=== PATIENT | female | born 1980 | race Caucasian/White ===

== ENCOUNTER 2020-11-04 07:04 | Day surgery (SDC) | payer BC ==
[~2020-11-04 07:04] MED LIST: Lactated Ringers 1,000 ML IV SCH; Sodium Chloride 0.9% 10 ML Syringe FLUSH PRN
[2020-11-04] MEDS ORDERED: Propofol 200 MG/20 ML SDV IV ONE (07:05)
[2020-11-04] MEDS ORDERED: Lidocaine 1% PF 2 ML SDV INJECT ONE (07:05)
--- NOTE | 2020-11-04 08:11 | PCM.PN ---
- General Info Date of Service: 11/04/20 - Review of Systems Systems Review Comment:: 40 y/o female with history of bloody diarrhea for at least 2 months here for colonoscopy. She is medically stable to proceed. H and P reviewed and no significant changes noted. I have discussed the proposed colonoscopy with the patient. Risks such as but not limited to bleeding and GI injury discussed and she agrees to proceed. - Patient Data Vitals - Most Recent: Last Vital Signs Temp 98.8 F 11/04/20 07:32 Pulse 92 11/04/20 07:42 Resp 16 11/04/20 07:42 BP 158/99 H 11/04/20 07:42 Pulse Ox 98 11/04/20 07:42 Weight - Most Recent: 289 lb Med Orders - Current: Current Medications Lactated Ringer's (Ringers, Lactated) 1,000 mls @ 125 mls/hr IV ASDIRECTED JEANCARLOS Last Admin: 11/04/20 07:56 Dose: 125 mls/hr Documented by: Sodium Chloride (Sodium Chloride 0.9% 10 Ml Syringe) 10 ml FLUSH ASDIRECTED PRN PRN Reason: Keep Vein Open Sepsis Event Note - Focused Exam Vital Signs: Vital Signs Temp Pulse Resp BP Pulse Ox 11/04/20 07:42 92 16 158/99 H 98 11/04/20 07:32 98.8 F 97 16 172/102 H 97 - Problem List Review Problem List Initiated/Reviewed/Updated: Yes - My Orders Last 24 Hours: My Active Orders 11/04/20 Breakfast Nothing Per Oral Diet [DIET] 11/04/20 07:00 Patient Status [ADT] Routine Patient to Empty Bladder [RC] ASDIRECTED Verify Patient Consent Obtain [RC] ASDIRECTED Lactated Ringers [Ringers, Lactated] 1,000 ml IV ASDIRECTED Sodium Chloride 0.9% [Saline Flush] 10 ml FLUSH ASDIRECTED PRN Peripheral IV Insertion Adult [OM.PC] Routine - Assessment Assessment:: Bloody diarrhea - Plan Plan:: Colonoscopy
--- NOTE | 2020-11-04 08:49 | PCM.OPNOTE ---
- General Post-Op/Procedure Note Date of Surgery/Procedure: 11/04/20 Operative Procedure(s): Colonoscopy with polypectomy and biopsy Findings: Localized inflammation of the rectal mucosa circumferentially extending from the dentate line to approximately the 10 cm level. Moderate size sigmoid colon polyp Normal-appearing remainder of colon and terminal ileum Pre Op Diagnosis: Bloody diarrhea Post-Op Diagnosis: Proctitis. Colon polyp Anesthesia Technique: MAC Primary Surgeon: Bruno Culp Pathology: Biopsies of rectum, right and left colon, and terminal ileum Sigmoid colon polyp EBL in mLs: 2 Complications: None Condition: Good
--- NOTE | 2020-11-04 10:58 | OR ---
DATE OF OPERATION: 11/04/2020 SURGEON: Bruno Culp MD PREOPERATIVE DIAGNOSIS: Bloody diarrhea. POSTOPERATIVE DIAGNOSES: Proctitis and colon polyp. OPERATION PERFORMED: Colonoscopy with biopsy and polypectomy. INDICATIONS FOR SURGERY: This 40-year-old female has had a 2-month history of diarrhea with blood. She comes for diagnostic colonoscopy. FINDINGS: In the patient's rectum extending from the dentate line to approximately the 10 cm level, there is circumferential inflammation with some granularity and friability of the surface which was also reddened. There was a rather sharp demarcation between this and normal colon proximal to this area. The remainder of the colon and terminal ileum appear normal with the exception of a single polyp noted in the sigmoid colon 25 cm from the anal verge. This was a semi-pedunculated polyp which is 1 cm in size. PROCEDURE IN DETAIL: The patient was taken to the procedure room. She was given intravenous sedation and with her in the left lateral decubitus position, digital rectal exam was performed showing no rectal masses. The Olympus colonoscope was inserted into the rectum and the inflammation was identified. Random biopsies of the area of inflammation are taken. Retroflexed examination of the rectal canal was also performed. The scope was advanced to the 25 cm level where the above-described polyp was identified. This was removed with a cautery snare and retrieved into a polyp trap. The scope was then carefully advanced under direct visualization through the entire length of the colon until the cecum was reached. Cecal acquisition was confirmed by noting normal internal cecal anatomy including appendiceal orifice and the ileocecal valve. The ileocecal valve was cannulated and the terminal ileum examined and appeared normal. Random biopsies of the terminal ileum were taken. The scope was slowly withdrawn sequentially re-examining the colonic segments. During withdrawal of the scope, random biopsies of the right and left colon were taken because of her symptoms. Examination was then completed, and after the entire colon and rectum had been fully examined, the scope was removed. The patient was then taken from the procedure room in satisfactory condition. ESTIMATED BLOOD LOSS: 2 mL. COMPLICATIONS: None. PROGNOSIS: Good. /[id number] PW/MODL
== END 2020-11-04 09:25 | disposition home or self-care (01) ==
LOC: FB.SDS 07:04
PROVIDERS: ATTEND Surgery
DX: D12.5 Benign neoplasm of sigmoid colon (principal); K52.9 Noninfective gastroenteritis and colitis, unspecified; K62.89 Other specified diseases of anus and rectum; I10 Essential (primary) hypertension; K59.00 Constipation, unspecified; L65.9 Nonscarring hair loss, unspecified; R68.83 Chills (without fever); Z79.899 Other long term (current) drug therapy
CPT/HCPCS: 00811; 45380; 45385; 88305; J2704; J7120